=== PATIENT | male | born 1990 | race Caucasian/White ===

== ENCOUNTER 2018-02-16 18:01 | Emergency (ER) | payer OTHER ==
[~2018-02-16] VITALS: Ht 188 cm; Wt 96.7 kg
[2018-02-16 18:15] VITALS: BP 133/73
[2018-02-16 18:44] LABS: HEMOGLOBIN 14.5 G/DL (12.5-16.6); MCH 30.1 PG (29.0-34.0); MCHC 35.4 G/DL (30.0-36.0); MCV 85.2 FL (86-99); PLATELET COUNT 266 K/uL (156-360); RBC DIS.WIDTH-CV 12.4 % (11.8-14.6); RBC DIS.WIDTH-SD 38.5 % (39-53); RED BLOOD COUNT 4.81 M/uL (4.00-5.50); WHITE BLOOD COUNT 12.3 K/uL (4.1-10.2)
[2018-02-16 19:09] LABS: APPEARANCE SL.HAZY ((CLEAR)); BILIRUBIN NEGATIVE; BLOOD LARGE; COLOR YELLOW ((YELLOW)); GLUCOSE (STRIP) NEGATIVE; KETONES 5; LEUKOCYTES SMALL; NITRITE NEGATIVE; PROTEIN (STRIP) 30; SPECIFIC GRAVITY 1.011 (1.000-1.030); UROBILINOGEN 0.2 MG/DL (0.2-1.0)
[2018-02-16 19:10] LABS: ALBUMIN 4.8 g/dL (3.2-4.8); CHLORIDE 105 mEq/L (99-109); POTASSIUM 3.7 mEq/L (3.7-5.4); SODIUM 137 mEq/L (136-147)
[2018-02-16 19:12] LABS: GLUCOSE 118 mg/dL (70-99)
[2018-02-16 19:13] LABS: TOTAL PROTEIN 7.8 g/dL (6.4-8.3)
[2018-02-16 19:14] LABS: TOTAL BILIRUBIN 0.8 mg/dL (0.0-1.0)
[2018-02-16 19:16] LABS: ALKALINE PHOSPHATASE 61 IU/L (3-129); CREATININE 0.9 mg/dL (0.6-1.3); GFR ESTIMATE (CALCULATED) > 59 mL/min/ (58.99-99999)
[2018-02-16 19:17] LABS: UREA NITROGEN (BUN) 10 mg/dL (9-23)
[2018-02-16 19:18] LABS: AST (GOT) 31 IU/L (2-34)
[2018-02-16 19:19] LABS: ALT (GPT) 33 IU/L (3-49)
[2018-02-16 19:44] LABS: EPITHELIAL CELLS 1+ /HPF; RED BLOOD CELLS TNTC /HPF (0-5)
[2018-02-16 19:45] LABS: BACTERIA RARE /HPF; MUCUS NONE SEEN /LPF; UCUL ADDED? YES
== END 2018-02-16 19:23 | disposition left against medical advice (07) ==
LOC: EME 18:01
DX: K59.00 Constipation, unspecified (principal); Z53.21 Procedure and treatment not carried out due to patient leaving prior to being seen by health care provider
CPT/HCPCS: 80053; 81003; 85027; 87086